=== PATIENT | female | born 1980 | race African-American/Black ===

== ENCOUNTER 2016-08-08 11:06 | Emergency (ER) | payer OTHER ==
[~2016-08-08] VITALS: Ht 165.1 cm; Wt 85.3 kg
[~2016-08-08 11:06] MED LIST: APAP500 OR; HYDROCODON-ACE1 EAC5 OR; LANSINOH 60 GM60 GM TOP; MOM OR; NORCO 5-325 TA1 EACH PO; PENICILLIN VK500 M1 PO; PRENATAL 1 PLU1 EACH PO; VITAMIN B-625 MG PO
[2016-08-08 11:55] LABS: URINE BILIRUBIN 1+ (Negative); URINE BLOOD TRACE (Negative); URINE COLOR YELLOW; URINE GLUCOSE-RANDOM* NEGATIVE (Negative); URINE KETONES TRACE (Negative); URINE LEUKOCYTES-REFLEX 3+ (Negative); URINE PROTEIN (DIPSTICK) TRACE (Negative); URINE SPECIFIC GRAVITY 1.025 (1.003-1.035)
[2016-08-08 11:59] LABS: ICTOTEST (BILI CONFIRMATORY) Negative (Negative)
[2016-08-08 12:00] VITALS: BP 120/78
[2016-08-08 12:05] LABS: SQUAMOUS >10 Many /LPF (0-3)
[2016-08-08 12:06] LABS: CASTS None Seen /LPF (None Seen)
[2016-08-08 12:08] LABS: CRYSTALS None Seen /LPF (None Seen); URINE RBC 0-2 Rare /HPF (0-2); URINE WBC-REFLEX >25 Many /HPF (0-5)
[2016-08-08 13:08] LABS: ABSOLUTE NEUTROPHILS 5.6 thou/uL (1.4-8.2); BASOPHILS 0.7 % (0.0-2.0); EOSINOPHILS 1.9 % (0.0-3.0); HEMATOCRIT 37.9 % (37.0-47.0); HEMOGLOBIN 12.7 gm/dL (12.0-15.0); MCH 27.6 pg (26.0-34.0); MCHC 33.4 g/dL (28.0-37.0); MCV 82.6 fL (80.0-100.0); MONOCYTES 8.6 % (1.0-8.0); PLATELET COUNT 250 thou/uL (150-400); POLYS 67.8 % (36.0-66.0); RBC 4.59 mil/uL (4.20-5.00); RDW 14.1 % (10.5-14.5); WBC 8.3 thou/uL (4.0-11.0)
[2016-08-08 13:14] LABS: CALCIUM 8.6 mg/dL (8.5-10.1); CREATININE 0.8 mg/dL (0.6-1.0); POTASSIUM 3.9 mmol/L (3.5-5.1)
[2016-08-08 13:15] LABS: MANUAL DIFF NO
[2016-08-08 13:19] LABS: ALBUMIN 3.6 g/dL (3.4-5.0); TOTAL BILIRUBIN 0.3 mg/dL (<0.1-1.0); TOTAL PROTEIN 7.3 g/dL (6.4-8.2)
[2016-08-08] MEDS ORDERED: TRAMADOL 50 MG50 MG PO (14:14)
[2016-08-08] MEDS ORDERED: KEFLEX500 MG PO (14:14)
[2016-08-11 03:08] LABS: CHLAMYDIA TRACHOMATIS-PCR Negative (Negative); NEISSERIA GONORRHEA-PCR Negative (Negative)
== END 2016-08-08 14:29 | disposition home or self-care (01) ==
LOC: ER 11:06
PROVIDERS: Emergency Medicine
DX: N39.0 Urinary tract infection, site not specified (principal); D25.9 Leiomyoma of uterus, unspecified; M19.90 Unspecified osteoarthritis, unspecified site; J45.909 Unspecified asthma, uncomplicated; K50.90 Crohn's disease, unspecified, without complications; Z88.5 Allergy status to narcotic agent; Z88.6 Allergy status to analgesic agent; Z98.890 Other specified postprocedural states

== ENCOUNTER 2017-08-18 06:55 | Emergency (ER) | payer OTHER ==
[~2017-08-18] VITALS: Ht 162.6 cm; Wt 85.7 kg
[~2017-08-18 06:55] MED LIST changes: +KEFLEX500 MG PO; +TRAMADOL 50 MG50 MG PO
[2017-08-18] MEDS ORDERED: NUVARING VAGIN1 EACH VG (07:10)
[2017-08-18] MEDS ORDERED: NEURONTIN 300300 M1 PO ×2 (07:49→07:50)
[2017-08-18 07:56] VITALS: BP 123/90
== END 2017-08-18 07:58 | disposition home or self-care (01) ==
LOC: ER 06:55
DX: S50.02XA Contusion of left elbow, initial encounter (principal); W19.XXXA Unspecified fall, initial encounter; Y93.89 Activity, other specified; Y92.89 Other specified places as the place of occurrence of the external cause; Y99.8 Other external cause status; Z88.5 Allergy status to narcotic agent; Z88.6 Allergy status to analgesic agent